=== PATIENT | female | born 1955 | race Caucasian/White ===

== ENCOUNTER → 2018-04-06 | Outpatient (CLI) | payer BC ==
[~2018-04-06] MED LIST: NATURE THROID PO; ONDA4TAB PO
[2018-04-06 09:46] LABS: PLATELET COUNT, AUTOMATED 210 K/uL (150-450)
[2018-04-06 10:24] LABS: LDL CHOLESTEROL 92 mg/dl
== END ==
LOC: LAB 09:06
PROVIDERS: ATTEND Specialist
DX: E06.3 Autoimmune thyroiditis (principal); H81.49 Vertigo of central origin, unspecified ear; R53.82 Chronic fatigue, unspecified
CPT/HCPCS: 36415; 82040; 82247; 82306; 82310; 82374; 82435; 82465; 82565; 82607; 82947; 83718; 84075; 84132; 84155; 84295; 84439; 84443; 84450; 84460; 84478; 84520; 85025